=== PATIENT | male | born 1970 | race Caucasian/White ===

== ENCOUNTER 2017-04-13 23:35 | Emergency (ER) | payer BC ==
--- NOTE | 2017-04-13 23:55 | Emergency Department Record ---
History of Present Illness - General Chief Complaint: Abdominal Pain Stated Complaint: LEFT ABD PAIN Time Seen by Provider: 04/13/17 23:39 Source: Patient Mode of Arrival: Ambulatory Limitations: No limitations - History of Present Illness Initial Comments: 46 yo male presents with abdominal pain that started 4 days ago. The pain started on the left side with a hard sneeze. The pain has persisted and he now feels the pain on the right side of the abdomen and back at times. No cough, shortness or breath. No nausea or vomiting. Food does not affect the pain. No fevers. No vomiting or diarrhea. No chest pain. The pain is better if still and worse with certain movements or actions such as a sneeze. No history of CAD, PE, renal disease, pancreatic disease, liver disease. He has DM, HTN, Elevated cholesterol, Neuropathy (feet). The symptoms are not exertion related. The abdominal pain is most noticed if he tightens his abdomen muscles abruptly. PCP is Dr Migue TOVAR Complaint: Abdominal pain, Flank pain (Left) -: Days(s) (4) Location: LUQ, RUQ Radiation: Back, LUQ, RUQ Migration to: RUQ, LLQ Severity: Moderate Quality: Aching, Sharp Consistency: Intermittent Improves With: Rest Worsens With: Other (worse with a sneeze or hard cough. Hurts in the abdomen not in the chest) Associated Symptoms: Denies other symptoms - Related Data Home Medications Medication Instructions Recorded Confirmed Last Taken Atenolol [Tenormin] 100 mg PO DAILY 04/14/17 04/14/17 04/14/17 Atorvastatin Calcium [Lipitor] 10 mg PO DAILY 04/14/17 04/14/17 04/14/17 Escitalopram Oxalate [Lexapro] 10 mg PO DAILY 04/14/17 04/14/17 04/14/17 Gabapentin [Neurontin] 600 mg PO QID 04/14/17 04/14/17 04/14/17 Glipizide [Glucotrol Xl] 10 mg PO BID 04/14/17 04/14/17 04/14/17 Hydrochlorothiazide 50 mg PO DAILY 04/14/17 04/14/17 04/14/17 Losartan Potassium [Cozaar] 25 mg PO DAILY 04/14/17 04/14/17 04/14/17 Omeprazole Magnesium [Prilosec Otc] 20 mg PO DAILY 04/14/17 04/14/17 04/14/17 Sulfasalazine [Azulfidine] 500 mg PO TID 04/14/17 04/14/17 04/14/17 Allergies Allergy/AdvReac Type Severity Reaction Status Date / Time No Known Drug Allergies Allergy Verified 04/13/17 23:53 Review of Systems Constitutional: Denies: Chills, Fever, Malaise, Weakness Eyes: Denies: Eye discharge, Eye pain, Photophobia, Vision change ENT: Denies: Congestion, Throat pain Respiratory: Denies: Cough, Dyspnea, Hemoptysis, Wheezes Cardiovascular: Denies: Chest pain, Palpitations, Syncope Endocrine: Denies: Fatigue, Polydipsia, Polyuria Gastrointestinal: Reports: Abdominal pain. Denies: Constipation, Diarrhea, Hematemesis, Hematochezia, Melena, Nausea, Vomiting Genitourinary: Denies: Dysuria, Frequency, Hematuria, Urgency Musculoskeletal: Reports: Back pain. Denies: Arthralgia, Myalgia, Neck pain Skin: Denies: Bruising, Change in color, Rash Neurological: Reports: Numbness. Denies: Weakness Psychiatric: Denies: Anxiety Hematological/Lymphatic: Denies: Anemia, Blood Clots, Easy bleeding, Easy bruising, Swollen glands Physical Exam - General General Appearance: Alert, Oriented x3, Cooperative, No acute distress Limitations: No limitations - Head Head exam: Atraumatic, Normocephalic, Normal inspection - Eye Eye exam: Normal appearance. negative: Conjunctival injection, Periorbital swelling - ENT ENT exam: Normal exam Ear exam: Normal external inspection Nasal Exam: Normal inspection Mouth exam: Normal external inspection - Neck Neck exam: Normal inspection - Respiratory Respiratory exam: Normal lung sounds bilaterally. negative: Accessory muscle use, Chest wall tenderness, Decreased breath sounds, Prolonged expiratory, Rales , Respiratory distress, Rhonchi, Stridor, Wheezes, Other - Cardiovascular Cardiovascular Exam: Regular rate, Normal rhythm, Normal heart sounds Peripheral Pulses: 2+: Radial (R), Radial (L) - GI/Abdominal GI/Abdominal exam: Soft, Tenderness (soft but tender LUQ, no mass, no hernia, no rash. Remaining abdomen is very soft and not tender). negative: Diminished bowel sounds, Distended, Guarding, Hernia, Pulsatile mass, Rebound, Rigid - Rectal Rectal exam: Deferred - exam: Deferred - Extremities Extremities exam: Normal inspection, Full ROM, Normal capillary refill. negative: Tenderness - Back Back exam: Reports: Normal inspection, Full ROM. Denies: CVA tenderness (R), CVA tenderness (L), Muscle spasm, Paraspinal tenderness - Neurological Neurological exam: Alert, Normal gait, Oriented X3, Reflexes normal - Psychiatric Psychiatric exam: Normal affect, Normal mood. negative: Agitated, Anxious - Skin Skin exam: Dry, Intact, Normal color, Warm Course - Reevaluation(s) Reevaluation #1: The patient was well appearing Vitals reviewed The patient has reproducible LUQ tenderness Labs, UA and CT ordered. 04/14/17 00:00 04/14/17 00:14 The CBC and UA are normal on review 04/14/17 00:17 No acute changes on the CMP or Lipase. Mild increase in glucose 04/14/17 01:[address] scan was reviewed. No acute findings, moderate distension of the stomach, hepatic steatosis, see full report for full list of incidental findings. Medical Decision Making - Lab Data Result diagrams: 04/13/17 23:50 04/13/17 23:50 Disposition Disposition: Discharge Clinical Impression: Abdominal pain Qualifiers: Abdominal location: unspecified location Qualified Code(s): R10.9 - Unspecified abdominal pain Disposition: Home, Self-Care Condition: (1) Good Instructions: Abdominal Pain (ED) Additional Instructions: Call your doctor tomorrow for a follow up of this ER visit to review the full results Return if worse, fever, cough, short of breath, or any new concerns Forms: Patient Portal Access Time of Disposition: 01:32 Quality - Quality Measures Quality Measures: N/A - Blood Pressure Screening Does Patient Have Any of the Following: No Blood Pressure Classification: Normal BP Reading Systolic Measurement: 115 Diastolic Measurement: 72 Screening for High Blood Pressure: < Normal BP, F/U Not Required > [[id number]]
[2017-04-13] MEDS: KETOROLAC 30 MG/ML VIAL IVP ONE (23:59)
[2017-04-13] MEDS: 0.9 % SODIUM CHLORIDE 1,000 ML BAG IV ONE (23:59)
[2017-04-14] LABS: BASO % 0.7 % (0-6); EOS % 1.3 % (0-6); HEMATOCRIT 43.4 % (42.0-52.0); HEMOGLOBIN 15.2 gm/dl (14.0-18.0); LYMPH % 25.3 % (16-45); MEAN CELL VOLUME 93.5 fl (81-97); MEAN CORPUSCULAR HEMOGLOBIN 32.8 pg (27-33); MEAN PLATELET VOLUME 9.1 fl (7.4-10.4); MONO % 8.7 % (0-9); PLATELET COUNT 199 K/uL (130-400); RED BLOOD COUNT 4.64 M/uL (4.40-5.70); RED CELL DISTRIBUTION WIDTH 12.5 % (11.5-14.5); WHITE BLOOD COUNT W/O DIFF 9.2 K/uL (4.2-12.2)
[2017-04-14 00:11] LABS: URINE APPEARANCE CLEAR; URINE BILIRUBIN NEGATIVE (NEGATIVE); URINE BLOOD NEGATIVE (NEGATIVE); URINE COLOR YELLOW; URINE GLUCOSE (UA) NEGATIVE (NEGATIVE); URINE KETONE NEGATIVE (NEGATIVE); URINE LEUKOCYTE ESTERASE NEGATIVE (NEGATIVE); URINE NITRITE NEGATIVE (NEGATIVE); URINE PROTEIN NEGATIVE (NEGATIVE); URINE UROBILINOGEN 0.2 E.U./dL (0.20 - 1.00)
[2017-04-14 00:15] LABS: ALBUMIN 4.3 g/dL (4.0-5.0); ALKALINE PHOSPHATASE 62 U/L (40-129); ALT/SGPT 24 U/L (<41); AST/SGOT 20 U/L (10.0-50.0); BILIRUBIN,DIRECT < 0.2 mg/dL (0-0.3); BLOOD UREA NITROGEN 16 mg/dL (6-20); CREATININE 0.7 mg/dL (0.7-1.2); EST GLOMERULAR FILTRATION RATE > 60 mL/min; GLUCOSE,RANDOM 156 mg/dL (74-109); LIPASE 13 U/L (13-60); TOTAL PROTEIN 7.4 g/dL (6.6-8.7)
--- NOTE | 2017-04-15 16:08 | CT SCAN REPORT ---
EXAM: CT SCAN ABDOMEN/PELVIS W CONTRAST HISTORY: LEFT UPPER QUADRANT PAIN, PRIOR HERNIA SURGERY. TECHNIQUE: Axial CT scan of the abdomen and pelvis performed following the intravenous administration of 90 mL of Omnipaque-300 as the IV contrast. No oral contrast was utilized at the referring physician's request. Preliminary report provided by [facility]. COMPARISON: None. FINDINGS: No calcified gallstones are seen within the gallbladder. Mild diffuse fatty infiltration of the liver with no focal hepatic mass identified. No definite hepatic, splenic, adrenal, pancreatic, or renal mass identified. Prostate calcifications are evident. Evaluation of the bowel limited without oral contrast but the appendix is identified and is of normal caliber with no appendicitis evident. No free intraperitoneal air or free intraperitoneal fluid identified. Prominent spurring in the lower thoracic spine. IMPRESSION: 1. MILD DIFFUSE FATTY INFILTRATION OF THE LIVER. 2. PROSTATE CALCIFICATION. 3. NO APPENDICITIS EVIDENT. NO FREE AIR OR FREE FLUID EVIDENT. JOB NUMBER: [id number] MTDD
== END 2017-04-14 01:42 | disposition home or self-care (01) ==
LOC: ER 23:35
DX: R10.12 Left upper quadrant pain (principal); R05 Cough; I10 Essential (primary) hypertension; E11.9 Type 2 diabetes mellitus without complications; Z79.84 Long term (current) use of oral hypoglycemic drugs
CPT/HCPCS: 99284 ×2; 96374; 83690; 85025; 80076; 80048; 81003; 74177; Q9967; J1885; J7030